=== PATIENT | male | born 1955 | race Caucasian/White ===

== ENCOUNTER → 2018-10-09 | Outpatient (CLI) | payer OTHER ==
[~2018-10-09] MED LIST: ATOR20TA22 PO; CIPR-344 PO; DIPH-740 PO; LISI-353 PO; LOSA50TA80 PO; METF-450 PO; PRED20TA6 PO; ROBC PO
--- NOTE | 2018-10-09 10:17 | RADIOLOGY IMAGING REPORT ---
FACILITY: [facility] [place] PATIENT NAME: Darian Gutierrez : 1955 MR: [id number] V: [id number] EXAM DATE: ORDERING PHYSICIAN: DONAL MARINELLI TECHNOLOGIST: Location: [facility] Patient: Darian Gutierrez : 1955 Visit/Account:[id number] Date of Sevice: 10/09/2018 EXAMINATION: Right knee, 3 views 10/09/2018 9:53 AM HISTORY: Right knee pain. Patient reports injury years ago. COMPARISON: 05/17/2017 FINDINGS: Marginal osteophytic spurring. Medial femorotibial joint space loss has not progressed arriola bstantially. No visible joint effusion. No acute-appearing bony finding. There are some peripheral atherosclerotic vascular calcifications. IMPRESSION: Mild to moderate osteoarthritis of the right knee without significant progression comparing with 05/05. Report Dictated By: Matt Patel MD at 10/09/2018 10:09 AM Report E-Signed By: Matt Patel MD at 10/09/2018 10:11 AM WSN:[id number]
== END ==
LOC: RAD 09:40
PROVIDERS: ATTEND Family Medicine
DX: M17.11 Unilateral primary osteoarthritis, right knee (principal)